=== PATIENT | female | born 1935 | race African-American/Black ===

== ENCOUNTER 2018-04-10 12:31 | Emergency (ER) | payer MEDICARE, OTHER ==
[~2018-04-10] VITALS: Ht 154.9 cm; Wt 74.8 kg
[~2018-04-10 12:31] MED LIST: ASPIRIN EC81 M1 PO; BENICAR20 MG PO; CLOPIDOGREL75 M1 PO; COLACE100 MG PO; CRESTOR20 M2 PO; KLOR-CON 1010 ME1 PO; METFORMIN HCL500 M3 PO; MIRALAX17 GM PO; NADOLOL20 M1 PO; PROTONIX40 M3 PO; VITAMIN B-121000 MC3 PO; VITAMIN B6100 MG PO; ZETIA10 M1 PO
--- NOTE | 2018-04-10 14:36 | CT SCAN REPORT ---
EXAMINATION: CT HEAD WITHOUT CONTRAST CT CERVICAL SPINE WITHOUT CONTRAST CLINICAL INFORMATION: Fall. COMPARISON: CT head dated July 04, 2014. TECHNIQUE: Contiguous axial imaging was performed from the skull base to vertex without intravenous administration of contrast. DLP: 1224.26 mGy-cm FINDINGS: CT HEAD: There is a 4.8 x 2.9 cm hematoma centered within the right occipital lobe. There is a moderate amount of surrounding low attenuation, consistent with edema. Hemorrhage appears to extend into the occipital horn of the right lateral ventricle. There is extensive microvascular ischemic disease. The ventricles are moderately enlarged, slightly greater than on the previous study. The calvarium is intact without depressed skull fracture. There are small radiopaque foreign objects within the right posterior scalp. The paranasal sinuses and mastoid air cells are clear. CT CERVICAL SPINE: There is straightening of the cervical spine. The posterior elements are well aligned. Prevertebral soft tissue is within normal limits. C1-C2 relationship is anatomic. The dens is intact. The vertebral bodies demonstrate normal stature. The intervertebral disc spaces are relatively well-preserved. There are anterior and posterior osteophytes within the mid to upper cervical spine. There is multilevel spondylosis. No acute fracture or subluxation. Lung apices are clear. IMPRESSION: CT head: There is a 4.8 x 2.9 cm hematoma centered within the right occipital lobe. There is moderate surrounding edema. Hemorrhage appears to extend into the occipital horn of the right lateral ventricle. There is extensive microvascular ischemic disease. There is ventriculomegaly. CT cervical spine: No acute osseous cervical spine abnormality. This critical result was discussed with Chinmay Quiñonez MD at 2:32 PM on 04/10/18 and it was ascertained that the content and urgency of the report was understood at the time of direct communication.
[2018-04-10] MEDS ORDERED: HYDROCHLOROTH12.5 M3 PO (14:38)
[2018-04-10] MEDS ORDERED: LOSARTAN POTASS50 M1 PO (14:38)
[2018-04-10 14:43] LABS: ABSOLUTE BASOPHIL COUNT 0 /CUMM (0.0-0.2); ABSOLUTE EOSINOPHIL COUNT 0.1 /CUMM (0.0-0.7); ABSOLUTE GRANULOCYTE CT 4.6 /CUMM (1.4-6.5); ABSOLUTE LYMPH COUNT 1.4 /CUMM (1.2-3.4); ABSOLUTE MONOCYTE COUNT 0.7 /CUMM (0.10-0.60); BASOPHIL % 0.1 % (0.0-2.0); GRANULOCYTE % 67.7 % (42.2-75.2); MEAN CORPUSCULAR HGB CONC 32.8 G/DL (33.0-37.0); MEAN CORPUSCULAR VOLUME 85.3 FL (81.0-99.0); MEAN PLATELET VOLUME 8.4 FL (7.4-10.4); PLATELET COUNT 177 /CUMM (130-400); RED BLOOD CELL CT 4.57 /CUMM (4.20-5.40); WHITE BLOOD CELL COUNT 6.7 /CUMM (4.8-10.8)
[2018-04-10 14:44] VITALS: BP 128/64
--- NOTE | 2018-04-10 14:46 | ED GENERAL ADULT ---
History of Present Illness General Chief Complaint: Fall Stated Complaint: S/P FALL Source: family Exam Limitations: dementia Vital Signs & Intake/Output Vital Signs & Intake/Output Vital Signs Date Time Temp Pulse Resp B/P B/P Pulse O2 O2 Flow FiO2 Mean Ox Delivery Rate 04/10 1444 60 16 128/64 100 Room Air ED Intake and Output 04/11 0000 04/10 1200 Intake Total Output Total Balance Patient 165 lb Weight Allergies Coded Allergies: NO KNOWN ALLERGIES (07/04/14) Reconcile Medications Aspirin (Ecotrin*) 81 MG TABLET.DR 1 TAB PO DAILY HEART HEALTH (Reported) Clopidogrel Bisulfate (Clopidogrel) 75 MG TABLET 1 TAB PO DAILY BLOOD HEALTH (Reported) Cyanocobalamin (Vitamin B-12) 1,000 MCG TABLET 1 TAB PO DAILY VITAMIN SUPPORT (Reported) Ezetimibe (Zetia) 10 MG TABLET 1 TAB PO DAILY CHOLESTEROL (Reported) Hydrochlorothiazide 12.5 MG CAPSULE 1 CAP PO DAILY WATER RETENTION (Reported) Losartan Potassium 50 MG TABLET 1 TAB PO DAILY HEART (Reported) Metformin HCl 500 MG TABLET 1 TAB PO DAILY DIABETES (Reported) Nadolol 20 MG TABLET 1 TAB PO DAILY BP (Reported) Pantoprazole Sodium (Protonix) 40 MG TABLET.DR 1 TAB PO DAILY ACID REFLUX ( Reported) Potassium Chloride (Klor-Con 10) 10 MEQ TABLET.ER 1 TAB PO DAILY SUPPLEMENT ( Reported) Rosuvastatin Calcium (Crestor) 20 MG TABLET 1 TAB PO DAILY CHOLESTEROL ( Reported) Triage Note: PT BIBA FOR EVAL S/P UNWITNESSED FALL ?LAST PM/?EARLY THIS AM. DAUGHTER REPORTS PT WAS FOUND BY [facility] ON FLOOR, [facility] CARES FOR PT FROM 10PM-630AM. DAUGHTER REPORTS GRANDSON IS UNSURE OF WHEN PT FELL. PT PLACED ON C-COLLAR BY HEIKE CRUM AND THIS RN HOLDING CPSINE. +CREPITUS UPON PALPATION. DAUGHTER ALSO REPORTS LLE SWELLING ONGOING FOR "AWHILE." SWELLING NOTED, RLE HOT TO TOUCH. PT DENIES CP/SOB. FAMILY AT BEDSIDE. Triage Nurses Notes Reviewed? yes Onset: Abrupt Duration: hour(s): Timing: single episode today HPI: 82-year-old female with a history of dementia, CHF (status post pacemaker), hypertension, hyperlipidemia, diabetes presenting status post an unwitnessed fall on Plavix. Patient presents with her daughter who provides the history. Patient resides in her home with home health aides during the day and evening, and her grandson that cares for her overnight. Family reports that the patient went to bed last night and was found laying on the floor this morning. Unsure of her downtime, but reports it could not have been longer than 8 hours. Family reports that the patient appears more altered than her baseline dementia. On arrival to the emergency department the patient herself has no complaints and denies any pain. She is disoriented 3. (Heike Schrader) Past History Travel History Traveled to [facility] past 21 day No Medical History Any Pertinent Medical History? see below for history Neurological: dementia EENT: NONE Cardiovascular: CHF, hypertension, hyperlipidemia, PACEMAKER Respiratory: NONE Gastrointestinal: NONE Hepatic: NONE Renal: NONE Musculoskeletal: NONE Psychiatric: NONE Endocrine: diabetes Blood Disorders: NONE CEMENT FINISHER HELPER/Reproductive: NONE History of MRSA: No History of VRE: No History of CDIFF: No Surgical History Surgical History: non-contributory Psychosocial History Who do you live with Patient/Self Services at Home None What is your primary language [place] Tobacco Use: Never used Family History Hx Contributory? No (Heike Schrader) Review of Systems Review of Systems Constitutional: Reports: no symptoms. EENTM: Reports: no symptoms. Respiratory: Reports: no symptoms. Cardiovascular: Reports: no symptoms. GI: Reports: no symptoms. Genitourinary: Reports: no symptoms. Musculoskeletal: Reports: no symptoms. Skin: Reports: no symptoms. Neurological/Psychological: Reports: no symptoms. Hematologic/Endocrine: Reports: no symptoms. Immunologic/Allergic: Reports: no symptoms. All Other Systems: Reviewed and Negative (Heike Schrader) Physical Exam Physical Exam General Appearance: well developed/nourished, no apparent distress, alert, awake Head: atraumatic, normal appearance Eyes: Bilateral: normal appearance, PERRL, EOMI. Ears, Nose, Throat: normal ENT inspection Neck: normal inspection, no midline tenderness Respiratory: normal breath sounds, chest non-tender, lungs clear Cardiovascular: regular rate/rhythm Gastrointestinal: soft, non-tender Back: normal inspection, no vertebral tenderness Extremities: normal range of motion, pelvis stable, on exam of the lower extremities there is bilateral lower extremity edema with the left greater than right, the right lower extremity exhibits trace erythema with increased warmth, bilateral lower extremity are neurovascularly intact with 2+ pulses. Neurologic/Psych: no motor/sensory deficits, awake, alert, normal gait, normal mood/affect, unable to test cerebellar function due to mental status, Disoriented x3 Skin: intact, normal color, warm/dry Core Measures ACS in differential dx? No CVA/TIA Diagnosis: No Sepsis Present: No Sepsis Focused Exam Completed? No (Joseph DAMIAN,Heike) Progress Differential Diagnoses I considered the following diagnoses in my evaluation of the patient: [ICH versus vertebral fracture versus infection versus metabolic derangement versus ACS] Plan of Care: Orders Procedure Date/time Status TYPE & SCREEN (NOT X-MATCH) 04/10 1408 Complete PARTIAL THROMBOPLASTIN TIME 04/10 1359 Complete PROTHROMBIN TIME 04/10 1359 Complete Laboratory Tests 04/10/18 1430: Anion Gap 6, Estimated GFR > 60, BUN/Creatinine Ratio 16.7, Glucose 111 H, Calcium 11.1 H, Magnesium 1.9, Total Bilirubin 0.7, AST 36, ALT 40, Alkaline Phosphatase 66, Troponin I < 0.01, Dal-E-Ybrgckqpjcd Pept 122, Total Protein 7.2 , Albumin 4.1, Globulin 3.1, Albumin/Globulin Ratio 1.3, PT 13.8 H, INR 1.26 H , APTT 27, CBC w Diff NO MAN DIFF REQ, RBC 4.57, MCV 85.3, MCH 28.0, MCHC 32.8 L, RDW 14.0, MPV 8.4, Gran % 67.7, Lymphocytes % 21.2, Monocytes % 10.0 H, Eosinophils % 1.0, Basophils % 0.1, Absolute Granulocytes 4.6, Absolute Lymphocytes 1.4, Absolute Monocytes 0.7 H, Absolute Eosinophils 0.1, Absolute Basophils 0 CT head IMPRESSION: CT head: There is a 4.8 x 2.9 cm hematoma centered within the right occipital lobe. There is moderate surrounding edema. Hemorrhage appears to extend into the occipital horn of the right lateral ventricle. There is extensive microvascular ischemic disease. There is ventriculomegaly. CT cervical spine: No acute osseous cervical spine abnormality. Discussed with cyber defense incident responder neurosurg and will transfer patient to [place] for higher level of care Plain films and lower extremity Doppler were unable to be obtained prior to transport as [facility] was here for machine operator hop picker we did not want to delay patient care. This was relayed to [place] staff in report and will obtain upon arrival. Initial ED EKG: rhythm (sinus) (Heike Schrader) Comments: 04/10/2018 2:49:13 PM Patient presents for evaluation of injury sustained status post unwitnessed fall along with a complaint of right-sided headache. Physical examination reveals a relatively comfortable appearing patient with no apparent focal neurologic deficit. CT scan shows right occipital parenchymal hemorrhagic contusion with possible extension into the ventricle. RICKIE has discussed case with Dr. Ruiz, neurosurgery, patient will be transferred to [place]. Patient has been ambulating in the room and seems very unwilling to lie down on the stretcher or even in a Evy chair. Given the patient's injury and the fact that she likely fell I feel her continued ambulation presents a risk of additional fall with injury. I ordered Benadryl to help sedate patient until she can be transferred to [place]. I'm reluctant to give narcotics or benzodiazepines as this might significantly alter her neurologic status making difficult to assess for any worsening of her injury. (Olamide PERALES,Shaheen Huynh) Departure Departure Disposition: [facility] (ACUTE) Condition: Stable Clinical Impression Primary Impression: Intracranial bleed Referrals: Katie PERALES,Jeri Huynh (PCP/Family) Departure Forms: Customer Survey General Discharge Information (Heike Schrader) PA/ARCHITECTURAL MODEL MAKER Co-Sign Statement Statement: ED Attending supervision documentation- [X] I saw and evaluated the patient. I have also reviewed all the pertinent lab results and diagnostic results. I agree with the findings and the plan of care as documented in the PA's/ARCHITECTURAL MODEL MAKER's documentation. [] I have reviewed the ED Record and agree with the PA's/ARCHITECTURAL MODEL MAKER's documentation. [] Additions or exceptions (if any) to the PAs/ARCHITECTURAL MODEL MAKER's note and plan are summarized below: [] (Olamide PERALES,Shaheen Huynh) Critical Care Note Critical Care Note Critical Care Time: non-applicable (Heike Schrader)
[2018-04-10 14:51] LABS: PT 13.8 SEC (9.4-12.5); PTT 27 SEC (25-37)
== END 2018-04-10 17:44 | disposition short-term general hospital (02) ==
LOC: ERH 12:31
PROVIDERS: Physician Assistant
DX: S06.9X0A Unspecified intracranial injury without loss of consciousness, initial encounter (principal); I50.9 Heart failure, unspecified; I10 Essential (primary) hypertension; E11.9 Type 2 diabetes mellitus without complications; R60.0 Localized edema; Z79.84 Long term (current) use of oral hypoglycemic drugs; W19.XXXA Unspecified fall, initial encounter
CPT/HCPCS: 36415; 93005; 93010; 96374